=== PATIENT | male | born 1950 | race Native Hawaiian/Other Pacific Islander ===

== ENCOUNTER 2016-09-13 12:03 | Emergency (ER) | payer MEDICAID ==
[2016-09-13] MEDS ORDERED: CEFTRIAXONE SODIUM 1 G VIAL ONE (13:21)
--- NOTE | 2016-09-13 14:42 | RAD ---
Exam: Three-view left foot COMPARISON: None INDICATION: Left foot infection. Findings: AP, lateral and oblique views of the left foot were obtained. Focal soft tissue swelling is seen in the great toe. No soft tissue gas or radiopaque foreign body is identified. Underlying bone is unremarkable, without evidence of osteomyelitis. Vascular calcifications are appreciated. Overall alignment is maintained. Mild degenerative changes are seen within the first MTP joint. Joint spaces otherwise maintained. Minor enthesophyte formation is seen along the posterior calcaneus. IMPRESSION: Soft tissue swelling about the great toe, however there is no acute osseous abnormality or radiographic evidence of osteomyelitis.
== END 2016-09-13 14:32 | disposition home or self-care (01) ==
LOC: ED 12:03
DX: L03.032 Cellulitis of left toe (principal); E11.9 Type 2 diabetes mellitus without complications; Z79.84 Long term (current) use of oral hypoglycemic drugs
CPT/HCPCS: 73630; 99283 ×2; 96372; J0696

== ENCOUNTER 2016-10-16 01:37 | Emergency (ER) | payer MEDICAID ==
[2016-10-16] MEDS ORDERED: ALBUTEROL/IPRATROPIUM 2.5/0.5 MG 3 ML/EACH DOSE ONE (02:39)
[2016-10-16 03:13] LABS: ABSOLUTE NEUTROPHIL COUNT 5.5 K/mm3 (1.8-7.7); BASO # 0.1 K/mm3 (0.0-0.2); BASO % 0.6 % (0.2-1.0); EOS % 10.1 % (0.9-2.9); HEMATOCRIT 33.2 % (32.0-52.0); IMM NEUT% 0.2 % (0-1); LYMPH # 2.4 (1.0-4.8); LYMPH % 24.6 % (15-45); MEAN CELL VOLUME 90.5 fl (80.0-94.0); MEAN CORPUSCULAR HGB CONC 33.1 g/dl (33.0-37.0); MEAN PLATELET VOLUME 10.9 fl (7.4-10.4); MONO # 0.8 (0.0-0.8); MONO % 8.3 % (4-12); NEUT % 56.2 % (43-75); PLATELET COUNT 301 K/mm3 (130-400); RED CELL DISTRIBUTION WIDTH 13.7 % (11.5-14.5)
[2016-10-16] MEDS ORDERED: AZITHROMYCIN 250 MG TABLET ONE (04:10)
--- NOTE | 2016-10-16 08:17 | RAD ---
CHEST 2 VIEWS HISTORY: Difficulty breathing, cough. Frontal and lateral chest radiographs dated 10/16/2016. COMPARISON: None. FINDINGS: FOCAL AIRSPACE OPACITY: Patchy densities of the lower lobes bilaterally. Coarsened bronchovascular markings. PLEURAL EFFUSION: Small pleural effusions. CARDIOMEDIASTINAL SILHOUETTE: Nonenlarged. PNEUMOTHORAX: None identified. OSSEOUS STRUCTURES: No grossly destructive lesions. IMPRESSION: Findings worrisome for bilateral lower lobe pneumonia, with lower lobe infiltrates and small pleural effusions. Recommend continued follow-up imaging to ensure resolution of airspace abnormality.
== END 2016-10-16 04:16 | disposition home or self-care (01) ==
LOC: ED 01:37
DX: J40 Bronchitis, not specified as acute or chronic (principal); I10 Essential (primary) hypertension; E11.9 Type 2 diabetes mellitus without complications; F17.210 Nicotine dependence, cigarettes, uncomplicated; Z79.84 Long term (current) use of oral hypoglycemic drugs
CPT/HCPCS: 85025; 71020; 94640; 99283 ×2; 36415; A9270